=== PATIENT | female | born 1945 | race Caucasian/White ===

== ENCOUNTER 2025-01-16 08:16 | Outpatient (CLI) | payer MEDICARE | END 2025-01-16 08:17 | disposition home or self-care (01) | LOC: CSHSLEEP 08:16 | DX: G47.9 Sleep disorder, unspecified (principal); R53.83 Other fatigue; R35.1 Nocturia; I27.20 Pulmonary hypertension, unspecified; I10 Essential (primary) hypertension; G47.33 Obstructive sleep apnea (adult) (pediatric); R09.02 Hypoxemia | CPT/HCPCS: 95800 ==

== ENCOUNTER 2025-05-09 08:45 | Outpatient (CLI) | payer MEDICARE | END 2025-05-09 08:46 | disposition home or self-care (01) | LOC: CSHSLEEP 08:45 | PROVIDERS: ATTEND Family Medicine | DX: G47.9 Sleep disorder, unspecified (principal); R53.83 Other fatigue; R35.1 Nocturia; I51.9 Heart disease, unspecified; G47.33 Obstructive sleep apnea (adult) (pediatric) | CPT/HCPCS: 95811 ==